=== PATIENT | female | born 1980 | race Hispanic/Latino ===

== ENCOUNTER 2017-04-01 09:36 | Emergency (ER) | payer OTHER ==
[~2017-04-01] VITALS: Ht 149.9 cm; Wt 99.8 kg
[2017-04-01 12:00] VITALS: BP 138/88
== END 2017-04-01 11:05 | disposition home or self-care (01) ==
LOC: FSED 09:36
DX: R05 Cough (principal); J06.9 Acute upper respiratory infection, unspecified; Z98.84 Bariatric surgery status
CPT/HCPCS: 87400; 99283